=== PATIENT | male | born 1985 | race African-American/Black ===

== ENCOUNTER 2023-09-11 13:03 | Emergency (ER) | payer OTHER ==
[~2023-09-11] VITALS: Ht 167.6 cm; Wt 99.8 kg
[2023-09-11 13:07] VITALS: BP 126/96; PULSE 88; RESP 18; TEMP 97.8; O2SAT 96
[2023-09-11] MEDS: ACETAMINOPHEN EXTRA STRENGTH 500 MG TAB PO ONE (13:33)
[2023-09-11] MEDS ORDERED: AMOX500C25 PO (14:07)
[2023-09-11] MEDS ORDERED: ACET-10509 PO (14:07)
== END 2023-09-11 14:14 | disposition home or self-care (01) ==
LOC: MED 13:03
DX: J03.90 Acute tonsillitis, unspecified (principal); Z79.899 Other long term (current) drug therapy
CPT/HCPCS: 87081; 99283